=== PATIENT | female | born 1945 | race Caucasian/White ===

== ENCOUNTER 2023-10-23 10:53 | Outpatient (RCR) | payer MEDICARE, OTHER, SELFPAY | END 2023-11-18 23:59 | disposition home or self-care (01) | LOC: SPT 10:53 | PROVIDERS: PCP Family Medicine; Visit Provider Nurse Practitioner Family | DX: I89.0 Lymphedema, not elsewhere classified (principal) | CPT/HCPCS: 97140; 97161 ==

== ENCOUNTER 2023-11-19 06:00 | Outpatient (RCR) | payer MEDICARE, OTHER, SELFPAY | END 2023-11-28 23:59 | disposition home or self-care (01) | LOC: SPT 06:00 | PROVIDERS: PCP Family Medicine; Visit Provider Nurse Practitioner Family | DX: I89.0 Lymphedema, not elsewhere classified (principal) | CPT/HCPCS: 97140 ==